=== PATIENT | female | born 1975 | race Caucasian/White ===

== ENCOUNTER 2018-04-17 09:45 | Emergency (ER) | payer BC ==
--- NOTE | 2018-04-17 10:05 | Emergency Department Record ---
History of Present Illness - General Stated complaint: TOOTH PAIN Time Seen by Provider: 04/17/18 09:54 Source: Patient - History of Present Illness Initial comments: The patient states that she has lower left front tooth pain which has been present for several days, but worsened last night so that she had trouble sleeping last night. She has upper dentures, but is in process of getting her lower dentures. She must wait until June when her insurance kicks in. She has been taking 600 ibuprofen interspersed with tylenol but the pain has now increased. She denies fevers, chills, swelling, hernandez, or other symptoms. The pain does go along her jaw line to her left jaw. MD complaint: Tooth pain Location: Tooth # (22, 23, 24) Severity: Moderate - Related Data Previous Rx's Medication Instructions Recorded Penicillin V Potassium 500 mg PO QID #40 tablet 04/17/18 Tramadol HCl [Ultram] 50 mg PO Q8H #6 tab 04/17/18 Allergies Allergy/AdvReac Type Severity Reaction Status Date / Time sumatriptan [From Imitrex] Allergy Severe HIVES Verified 04/17/18 10:03 sumatriptan succinate Allergy Severe HIVES Verified 04/17/18 10:03 [From Imitrex] mold Allergy Unknown HIVES Verified 04/17/18 10:03 Review of Systems Reviewed: No additional complaints except as noted below Constitutional: Reports: As per HPI. Denies: Chills, Fever, Malaise, Night sweats, Weakness, Weight change Eyes: Reports: As per HPI. Denies: Eye discharge, Eye pain, Photophobia, Vision change ENT: Reports: As per HPI. Denies: Congestion, Dental pain, Ear pain, Epistaxis , Hearing loss, Throat pain Respiratory: Reports: As per HPI. Denies: Cough, Dyspnea, Hemoptysis, Stridor, Wheezes Cardiovascular: Reports: As per HPI. Denies: Arrhythmia, Chest pain, Dyspnea on exertion, Edema, Murmurs, Orthopnea, Palpitations, Paroxysmal nocturnal dyspnea, Rheumatic Fever, Syncope Endocrine: Reports: As per HPI. Denies: Fatigue, Heat or cold intolerance, Polydipsia, Polyuria Gastrointestinal: Reports: As per HPI. Denies: Abdominal pain, Constipation, Diarrhea, Hematemesis, Hematochezia, Melena, Nausea, Vomiting Genitourinary: Reports: As per HPI. Denies: Abnormal menses, Discharge, Dyspareunia, Dysuria, Frequency, Hematuria, Incontinence, Retention, Urgency Musculoskeletal: Reports: As per HPI. Denies: Arthralgia, Back pain, Gout, Joint swelling, Myalgia, Neck pain Skin: Reports: As per HPI. Denies: Bruising, Change in color, Change in hair/ nails, Lesions, Pruritus, Rash Neurological: Reports: As per HPI. Denies: Abnormal gait, Confusion, Headache, Numbness, Paresthesias, Seizure, Tingling, Tremors, Vertigo, Weakness Psychiatric: Reports: As per HPI. Denies: Anxiety, Auditory hallucinations, Depression, Homicidal thoughts, Suicidal thoughts, Visual hallucinations Hematological/Lymphatic: Reports: As per HPI. Denies: Anemia, Blood Clots, Easy bleeding, Easy bruising, Swollen glands Past Medical History - SOCIAL HISTORY Smoking Status: Never smoker - RESPIRATORY Hx Respiratory Disorders: No - CARDIOVASCULAR Hx Cardio Disorders: No - NEURO Hx Neuro Disorders: Yes Hx Headaches: Yes - GI Hx GI Disorders: Yes Hx Ulcer: Yes - Hx Genitourinary Disorders: No - ENDOCRINE Hx Endocrine Disorders: No - MUSCULOSKELETAL Hx Musculoskeletal Disorders: No - PSYCH Hx Psych Problems: No - HEMATOLOGY/ONCOLOGY Hx Hematology/Oncology Disorders: No Physical Exam - General General Appearance: Alert, Oriented x3, Cooperative, Mild distress - Head Head exam: Normal inspection - Eye Eye exam: Normal appearance, PERRL, EOMI. negative: Conjunctival injection, Nystagmus, Scleral icterus Pupils: Normal accommodation - ENT ENT exam: Normal exam, Mucous membranes moist, Normal external ear exam, Normal orophraynx, TM's normal bilaterally Ear exam: Normal external inspection. negative: External canal tenderness Nasal Exam: Normal inspection. negative: Discharge, Sinus tenderness Mouth exam: Normal external inspection, Tongue normal Teeth exam: Normal inspection, Dental tenderness # (#22,23, 24, nandini to palpation, no swelling to face, no lymphadenopathy). negative: Dental caries Throat exam: Normal inspection. negative: Tonsillar erythema, Tonsillar exudate - Neck Neck exam: Normal inspection, Full ROM. negative: Lymphadenopathy, Meningismus , Tenderness - Respiratory Respiratory exam: Normal lung sounds bilaterally. negative: Respiratory distress - Cardiovascular Cardiovascular Exam: Regular rate, Normal rhythm, Normal heart sounds - GI/Abdominal GI/Abdominal exam: Soft, Normal bowel sounds. negative: Tenderness - Rectal Rectal exam: Deferred - exam: Deferred - Extremities Extremities exam: Normal inspection, Full ROM, Normal capillary refill. negative: Tenderness - Back Back exam: Reports: Normal inspection, Full ROM. Denies: Muscle spasm, Rash noted, Tenderness - Neurological Neurological exam: Alert, CN II-XII intact, Normal gait, Oriented X3, Reflexes normal. negative: Motor sensory deficit - Psychiatric Psychiatric exam: Normal affect, Normal mood - Skin Skin exam: Dry, Intact, Normal color, Warm Course - Reevaluation(s) Reevaluation #1: MAPS reviewed, no norco since last December. 04/17/18 10:07 Medical Decision Making - Management Options MDM Management: Additional Work-up Planned (e.g. ADM/Transfer/OP Study) (Follow up with your dentist for tooth extractions) Disposition Disposition: Discharge Clinical Impression: Toothache Disposition: Home, Self-Care Condition: (1) Good Instructions: Toothache (ED) Additional Instructions: Take pen VK as directed until gone. Ultram as directed first 2 days, then ibuprofen alternated with tylenol as instructed. Soft diet. Follow up with your dentist as planned. Dental referral list given. Prescriptions: Penicillin V Potassium 500 mg PO QID #40 tablet Tramadol HCl [Ultram] 50 mg PO Q8H #6 tab Quality - Quality Measures Quality Measures: N/A - Blood Pressure Screening Does Patient Have Any of the Following: No Systolic Measurement: ~ Screening for High Blood Pressure: Patient Exclusion, Hx of HTN [G9744]
== END 2018-04-17 10:23 | disposition home or self-care (01) ==
LOC: ER 09:45
DX: K08.89 Other specified disorders of teeth and supporting structures (principal)
CPT/HCPCS: 99282

== ENCOUNTER 2018-09-25 07:55 | Day surgery (SDC) | payer BC ==
[2018-09-25] MEDS ORDERED: FENTANYL PF 100MCG/2ML VIAL IV ONE (07:56)
[2018-09-25] MEDS ORDERED: ONDANSETRON HCL IV 4 MG/2 ML VIAL IVP ONE (07:56)
[2018-09-25] MEDS ORDERED: LIDOCAINE 2% MDV (20MG/ML) 20ML VIAL IV ONE (07:56)
[2018-09-25] MEDS ORDERED: PROPOFOL 10 MG/ML VIAL IV ONE (07:56)
--- NOTE | 2018-09-26 09:20 | Operative Note ---
DATE OF SURGERY: 09/25/2018 OPERATION: ESOPHAGOGASTRODUODENOSCOPY with biopsy. PREOPERATIVE DIAGNOSIS: Questionable dysphagia. POSTOPERATIVE DIAGNOSIS: Possible vince esophagus, otherwise normal exam. PROCEDURE: After informed consent was obtained from the patient, she was placed in the left lateral decubitus position in the endoscopy suite, sedated and monitored by the department of anesthesia. A well-lubricated [id number] gastroscope was placed in the posterior oropharynx under direct visualization and passed to the proximal esophagus. There was no structural abnormality area of the oropharynx that was readily identified endoscopically. The proximal esophagus and mid and distal esophagus were carefully inspected. There appeared to be some white plaques, particularly in the mid and distal esophagus. The gastric body, antrum, pylorus, duodenal bulb and sweep were unremarkable. Normal distensibility was noted of the stomach. J-turn views of the proximal stomach were unremarkable. No mass lesions were seen in the cardia. The endoscope was straightened and retracted through the course of the esophagus. No new findings noted. RECOMMENDATIONS: We will await the results of biopsy. In the meantime, we will have the patient undergo a video swallowing evaluation to see if there is any evidence of an oropharyngeal motility issue that could be contributing to her swallowing complaints. As always, thank you for allowing me to participate in the healthcare of your patients. CC: KIERAN Fink
== END 2018-09-25 09:40 | disposition home or self-care (01) ==
LOC: HOP 07:55
PROVIDERS: ATTEND Internal Medicine Gastroenterology
DX: R13.10 Dysphagia, unspecified (principal); B37.81 Candidal esophagitis; K21.9 Gastro-esophageal reflux disease without esophagitis
CPT/HCPCS: 43239; 00731; 81025; J2405; J3010

== ENCOUNTER 2019-01-08 11:18 | Emergency (ER) | payer BC ==
--- NOTE | 2019-01-08 11:31 | Emergency Department Record ---
History of Present Illness - General Chief complaint: Extremity Problem Stated complaint: RT KNUCKLE INJURY Time Seen by Provider: 01/08/19 11:25 Source: Patient Mode of Arrival: Ambulatory Limitations: No limitations - History of Present Illness Initial comments: The patient is here due to R hand pain. She was walking her dog yesterday and had the leash wrapped around her R hand when the dog decided to run. The leash then twisted and injured the R hand mainly over the R 4th and 5th distal MC bones. The patient denies any wrist pain. MD Complaint: Extremity pain Onset/Timin -: Days(s) Location: Right, Hand History of Same: No Radiation: Distal Severity scale (1-10): 8 Quality: Burning, Other Consistency: Constant Improves with: Immobilization Worsens with: Exertion, Palpation Associated Symptoms: Denies other symptoms - Related Data Allergies Allergy/AdvReac Type Severity Reaction Status Date / Time sumatriptan [From Imitrex] Allergy Severe HIVES Unverified 12/22/18 10:18 sumatriptan succinate Allergy Severe HIVES Unverified 12/22/18 10:18 [From Imitrex] mold Allergy Unknown HIVES Unverified 12/22/18 10:18 Travel Screening - Travel/Exposure Within Last 30 Days Have you traveled within the last 30 days?: No Review of Systems Constitutional: Denies: Chills, Fever Eyes: Denies: Eye discharge ENT: Denies: Congestion Respiratory: Denies: Cough, Dyspnea Past Medical History - SOCIAL HISTORY Smoking Status: Never smoker - RESPIRATORY Hx Respiratory Disorders: Yes Hx Pneumonia: Yes (20 yrs ago) - CARDIOVASCULAR Hx Cardio Disorders: No - NEURO Hx Neuro Disorders: Yes Hx Headaches: Yes Hx of Migraines: Yes - GI Hx GI Disorders: Yes Hx Reflux: Yes Hx Ulcer: Yes - Hx Genitourinary Disorders: No - ENDOCRINE Hx Endocrine Disorders: No - MUSCULOSKELETAL Hx Musculoskeletal Disorders: Yes Hx Arthritis: Yes - PSYCH Hx Psych Problems: Yes Hx Depression: Yes (hx of 10 yrs ago) - HEMATOLOGY/ONCOLOGY Hx Hematology/Oncology Disorders: Yes Hx Anemia: Yes Family Medical History Any Significant Family History?: Yes Hx Cancer: Grandparents *Cancer Comment: breast cancer grandmothers Hx Diabetes: Father Hx Heart Disease: Father, Grandparents Hx HTN: Father, Mother Hx Kidney Disease: Father *Kidney Comment: kidney stones Hx Resp Disorders: Father, Mother Physical Exam - General General Appearance: Alert, Oriented x3, Cooperative, No acute distress - Head Head exam: Atraumatic, Normocephalic, Normal inspection - Eye Eye exam: Normal appearance - Extremities Extremities exam: Full ROM, Normal capillary refill, Tenderness. negative: Normal inspection (There is very mild bruising and swelling over the distal 4th L MC bone with mild tenderness to the L 4th and 5th MC bones. There is no malrotation on finger flexion. ), Joint swelling Image of Hand: 1 - Area of bruising and tenderness. - Neurological Neurological exam: Alert. negative: Motor sensory deficit Course Vital Signs 01/08/19 11:21 Temperature 97.5 F L Pulse Rate 82 Respiratory 16 Rate Blood Pressure 137/95 Pulse Ox 100 - Reevaluation(s) Reevaluation #1: I did discuss the neg xrays with the patient and the need to rest and ice at home. She is to see her PCP next week if not better. 01/08/19 12:11 Medical Decision Making - Data Complexity MDM Data: X-Ray Ordered and/or Reviewed - Radiology Data Radiology results: Report reviewed (R hand: Neg per Rad.) Disposition Disposition: Discharge Clinical Impression: Sprain of hand, right Qualifiers: Encounter type: initial encounter Qualified Code(s): S63.91XA - Sprain of unspecified part of right wrist and hand, initial encounter Disposition: Home, Self-Care Condition: (2) Stable Instructions: Hand Sprain (ED) Additional Instructions: Please take your home pain medicines as needed and ice the R hand when possible. Please see your doctor next week if not better. Forms: Patient Portal Access Time of Disposition: 12:11 Quality - Quality Measures Quality Measures: N/A - Blood Pressure Screening View Details: Yes Does Patient Have Any of the Following: No Blood Pressure Classification: Hypertensive Reading Systolic Measurement: 137 Diastolic Measurement: 95 Screening for High Blood Pressure: < First Hypertensive BP, F/U Documented > [G8950] First Hypertensive Follow-up Interventions: Referral to alternative/primary care provider.
[2019-01-08] MEDS ORDERED: ACETAMINOPHEN 325 MG TAB PO ONE (11:46)
--- NOTE | 2019-01-09 07:29 | RADIOLOGY REPORT ---
EXAM: RIGHT HAND, THREE VIEWS HISTORY: PAIN, SWELLING, DISCOLORATION RIGHT FOURTH AND FIFTH METACARPAL REGION AFTER INJURY INVOLVING A DOG LEASH LAST NIGHT. TECHNIQUE: Three views of the right hand were obtained. Comparison: February of 2015. FINDINGS: The bones show no sign of fracture, lytic lesion or periosteal bone formation. The wrist appears unremarkable. The joints are maintained. No suspicious narrowing or evidence of any dislocation. No radiopaque foreign body. IMPRESSION: NO SIGN OF ACUTE BONE PATHOLOGY OF THE RIGHT HAND OR WRIST. JOB NUMBER: [id number] [facility]
== END 2019-01-08 12:16 | disposition home or self-care (01) ==
LOC: ER 11:18
DX: S63.91XA Sprain of unspecified part of right wrist and hand, initial encounter (principal); X50.1XXA Overexertion from prolonged static or awkward postures, initial encounter; Y93.K1 Activity, walking an animal
CPT/HCPCS: 99283

== ENCOUNTER 2019-02-24 10:16 | Emergency (ER) | payer BC ==
[2019-02-24] MEDS ORDERED: 0.9 % SODIUM CHLORIDE 1000ML 1,000 ML IV ONE (10:26)
[2019-02-24] MEDS ORDERED: MORPHINE SULFATE 5 MG/ML VIAL IVP ONE ×2 (10:26→11:59)
--- NOTE | 2019-02-24 10:32 | Emergency Department Record ---
History of Present Illness - General Chief Complaint: Abdominal Pain Stated Complaint: ABD PAIN Time Seen by Provider: 02/24/19 10:25 Source: Patient, Family Mode of Arrival: Ambulatory Limitations: No limitations - History of Present Illness Initial Comments: 43 yo female presents with ongoing abdominal pain and anemia concerns. She has known dysfunctional uterine bleeding with anemia. She sees [facility]. She called the office today with concerns about pain and was directed to the ED. The pain is lower right. This is the same pain she has had with her current work up with [facility]. She is scheduled for surgery with [facility] March 13. NO syncope or chest pain. The symptoms are unchanged from what she has experienced but just not controlled. She is not longer on Percocet. She has been dealing with the heavy bleeding and pain about 1.5 years. Last blood work was 2 months ago. MD Complaint: Abdominal pain, Other (anemia) -: Month(s) Location: Suprapubic, RLQ Radiation: Suprapubic, RLQ Migration to: Suprapubic, RLQ Quality: Aching Consistency: Constant Improves With: Rest Worsens With: Movement Context: Other Associated Symptoms: Other - Related Data LMP (females 10-50): other Previous Rx's Medication Instructions Recorded Oxycodone HCl/Acetaminophen 1 tab PO Q8H PRN #6 tab 02/24/19 [Percocet 5mg/325mg] Allergies Allergy/AdvReac Type Severity Reaction Status Date / Time sumatriptan [From Imitrex] Allergy Severe HIVES Unverified 02/17/19 07:26 sumatriptan succinate Allergy Severe HIVES Unverified 02/17/19 07:26 [From Imitrex] mold Allergy Unknown HIVES Unverified 02/17/19 07:26 Review of Systems Constitutional: Denies: Chills, Fever, Malaise, Weakness Eyes: Denies: Eye discharge ENT: Denies: Congestion, Throat pain Respiratory: Denies: Cough, Dyspnea, Hemoptysis, Wheezes Cardiovascular: Denies: Chest pain, Palpitations, Syncope Endocrine: Denies: Fatigue Gastrointestinal: Reports: Abdominal pain. Denies: Diarrhea, Nausea, Vomiting Genitourinary: Reports: As per HPI, Abnormal menses, Other (No current vaginal bleeding). Denies: Dysuria, Urgency Musculoskeletal: Denies: Arthralgia, Back pain Skin: Denies: Bruising, Change in color, Rash Neurological: Denies: Headache Psychiatric: Denies: Anxiety Hematological/Lymphatic: Denies: Easy bleeding, Easy bruising Past Medical History - SOCIAL HISTORY Smoking Status: Never smoker - RESPIRATORY Hx Respiratory Disorders: Yes Hx Pneumonia: Yes (20 yrs ago) - CARDIOVASCULAR Hx Cardio Disorders: No - NEURO Hx Neuro Disorders: Yes Hx Headaches: Yes Hx of Migraines: Yes - GI Hx GI Disorders: Yes Hx Reflux: Yes Hx Ulcer: Yes - Hx Genitourinary Disorders: No - ENDOCRINE Hx Endocrine Disorders: No - MUSCULOSKELETAL Hx Musculoskeletal Disorders: Yes Hx Arthritis: Yes - PSYCH Hx Psych Problems: Yes Hx Depression: Yes (hx of 10 yrs ago) - HEMATOLOGY/ONCOLOGY Hx Hematology/Oncology Disorders: Yes Hx Anemia: Yes Family Medical History Hx Cancer: Grandparents *Cancer Comment: breast cancer grandmothers Hx Diabetes: Father Hx Heart Disease: Father, Grandparents Hx HTN: Father, Mother Hx Kidney Disease: Father *Kidney Comment: kidney stones Hx Resp Disorders: Father, Mother Physical Exam - General General Appearance: Alert, Oriented x3, Cooperative, No acute distress Limitations: No limitations - Head Head exam: Atraumatic, Normal inspection - Eye Eye exam: Normal appearance, PERRL. negative: Conjunctival injection, Scleral icterus - ENT ENT exam: Normal exam, Mucous membranes moist Ear exam: Normal external inspection Nasal Exam: Normal inspection Mouth exam: Normal external inspection - Neck Neck exam: Normal inspection - Respiratory Respiratory exam: Normal lung sounds bilaterally. negative: Respiratory distress - Cardiovascular Cardiovascular Exam: Regular rate, Normal rhythm, Normal heart sounds - GI/Abdominal GI/Abdominal exam: Soft, Tenderness (tender suprapubic, but very soft). negative: Distended, Guarding, Rebound, Rigid - Rectal Rectal exam: Deferred - exam: Deferred - Extremities Extremities exam: Normal inspection. negative: Pedal edema, Tenderness - Back Back exam: Denies: CVA tenderness (R), CVA tenderness (L) - Neurological Neurological exam: Alert, Oriented X3 - Psychiatric Psychiatric exam: Normal affect, Normal mood - Skin Skin exam: Dry, Intact, Normal color, Warm Course - Reevaluation(s) Reevaluation #1: 02/24/19 12:00 The patient is doing much better The pain is not resolved but better We discussed the labs Her Hgb is 8.9 No indication for emergent transfusion She has close follow up in three days She will be given a limited supply of pain medication until then She was given a copy of her CBC to show her PCP. 02/24/19 12:02 The patient was prescribed a controlled substance. The prescription does not exceed three days. MAPS was reviewed at the time of the prescripts The topics of abuse, addiction, over dose, dangers of multiple medications, disposal, and illegal distribution were discussed with the patient. Medical Decision Making - Lab Data Result diagrams: 02/24/19 11:02 02/24/19 11:02 Disposition Disposition: Discharge Clinical Impression: Chronic anemia Abdominal pain Qualifiers: Abdominal location: unspecified location Qualified Code(s): R10.9 - Unspecified abdominal pain Disposition: Home, Self-Care Condition: (1) Good Instructions: Abdominal Pain (ED) Additional Instructions: Review this ER visit and the tests performed with your family doctor Call your doctor for the next available follow up appointment Return to the ER for a recheck if worse, any new concerns or questions Take the prescriptions provided as directed Prescriptions: Oxycodone HCl/Acetaminophen [Percocet 5mg/325mg] 1 tab PO Q8H PRN #6 tab PRN Reason: Pain - Mild (1-4) Forms: Patient Portal Access Time of Disposition: 12:02 Quality - Quality Measures Quality Measures: N/A - Blood Pressure Screening Does Patient Have Any of the Following: No Blood Pressure Classification: Normal BP Reading Systolic Measurement: 118 Diastolic Measurement: 70 Screening for High Blood Pressure: < Normal BP, F/U Not Required > [G8783]
[2019-02-24] MEDS ORDERED: ONDANSETRON HCL IV 4 MG/2 ML VIAL IVP ONE (10:49)
[2019-02-24 11:13] LABS: ABSOLUTE NEUTROPHIL COUNT 3.38; BASO % 1.4 % (0-6); EOS % 2.3 % (0-6); GRAN % 51.2 % (47-80); HEMOGLOBIN 8.9 gm/dl (11.6-16.0); MEAN PLATELET VOLUME 9.2 fl (7.4-10.4); MONO % 14.1 % (0-9); PLATELET COUNT 455 K/uL (130-400); RED BLOOD COUNT 4.41 M/uL (3.80-5.40); WHITE BLOOD COUNT W/O DIFF 6.6 K/uL (4.2-12.2)
[2019-02-24 11:20] LABS: BLOOD UREA NITROGEN 14 mg/dL (6-20); CREATININE 0.4 mg/dL (0.5-0.9); EST GLOMERULAR FILTRATION RATE > 60 mL/min
[2019-02-24 11:23] LABS: GLUCOSE,RANDOM 90 mg/dL (74-109)
[2019-02-24 11:24] LABS: MEAN CORPUSCULAR HEMOGLOBIN 20.1 pg (27-33); MEAN CORPUSCULAR HGB CONC 29.7 g/dl (32-36); RED CELL DISTRIBUTION WIDTH 23.7 % (11.5-14.5)
[2019-02-24 11:50] LABS: URINE APPEARANCE CLEAR; URINE BILIRUBIN NEGATIVE (NEGATIVE); URINE BLOOD NEGATIVE (NEGATIVE); URINE COLOR YELLOW; URINE GLUCOSE (UA) NEGATIVE (NEGATIVE); URINE KETONE NEGATIVE (NEGATIVE); URINE LEUKOCYTE ESTERASE NEGATIVE (NEGATIVE); URINE NITRITE NEGATIVE (NEGATIVE); URINE PROTEIN NEGATIVE (NEGATIVE); URINE UROBILINOGEN 0.2 E.U./dL (0.20 - 1.00)
[2019-02-24 11:59] LABS: HCG,QUALITATIVE URINE NEGATIVE (NEGATIVE)
[2019-02-24] MEDS ORDERED: KETOROLAC 30 MG/ML VIAL IVP ONE (11:59)
[2019-02-24 12:09] LABS: ABO GROUP A; ANTIBODY SCREEN NEGATIVE (NEGATIVE); RH TYPE POSITIVE
== END 2019-02-24 12:40 | disposition home or self-care (01) ==
LOC: ER 10:16
DX: D50.0 Iron deficiency anemia secondary to blood loss (chronic) (principal); R10.31 Right lower quadrant pain; N93.8 Other specified abnormal uterine and vaginal bleeding
CPT/HCPCS: 80048; 81003; 81025; 85025; 86850; 86900; 86901; 96361; 96374; 96375; 96376; 99284; J1885; J2405; J7030